=== PATIENT | female | born 1975 | race Caucasian/White ===

== ENCOUNTER → 2021-12-31 08:57 | Outpatient (BNVA) | payer BC, SELFPAY | PROVIDERS: Visit Provider Obstetrics & Gynecology | DX: O20.0 Threatened abortion (principal) | CPT/HCPCS: 84702 ==

== ENCOUNTER → 2024-04-05 11:46 | Outpatient (BNVA) | payer BC, SELFPAY | PROVIDERS: PCP Registered Nurse; Visit Provider Registered Nurse | DX: R53.83 Other fatigue (principal) | CPT/HCPCS: 80053; 84443; 85025 ==

== ENCOUNTER 2024-06-12 09:07 | Outpatient (CLI) | payer BC, SELFPAY ==
--- NOTE | 2024-06-12 09:00 | MM_ITS ---
WS: [id number] Bilateral screening 3D tomosynthesis digital mammogram, 06/12/2024 9:10 AM Clinical Data: Z12.39 - Encounter for other screening for malignant neop... Comparison: 11/27/2020, 11/19/2020, 06/06/2019. Findings: No spiculated masses or clustered calcifications are seen. There are no secondary signs of carcinoma. MM/MM scr BI tomosynthesis [id number] Impression: Negative bilateral mammogram unchanged. Recommend annual screening mammograms. BIRADS: 1 - Negative FOLLOW UP: 1 Year Follow-up DENSITY: The breasts are heterogeneously dense, which may obscure small masses. The CAD abstract checker was used
== END 2024-06-12 09:08 | disposition home or self-care (01) ==
LOC: MOBLMAM 09:08
PROVIDERS: PCP Registered Nurse; Visit Provider Registered Nurse
DX: Z12.31 Encounter for screening mammogram for malignant neoplasm of breast (principal); R92.333 Mammographic heterogeneous density, bilateral breasts
CPT/HCPCS: 77063; 77067